=== PATIENT | female | born 1970 | race Caucasian/White ===

== ENCOUNTER 2017-02-23 23:35 | Emergency (ER) | payer MEDICAID ==
[~2017-02-23] VITALS: Ht 160 cm; Wt 59.0 kg
[2017-02-23 23:35] VITALS: BP 113/74
[2017-02-24] MEDS ORDERED: ACETAMINOPHEN ES 500 MG TABLET ONE (00:53)
[2017-02-24] MEDS ORDERED: ACETAMINOPHEN 325 MG TABLET PO ONE (01:00)
== END 2017-02-24 01:13 | disposition home or self-care (01) ==
LOC: ER 23:35
DX: S39.012A Strain of muscle, fascia and tendon of lower back, initial encounter (principal); V43.52XA Car driver injured in collision with other type car in traffic accident, initial encounter; Y93.89 Activity, other specified; Y92.89 Other specified places as the place of occurrence of the external cause; Y99.9 Unspecified external cause status
CPT/HCPCS: A4606; Z7502; Z7610

== ENCOUNTER 2017-04-07 21:51 | Emergency (ER) | payer MEDICAID, OTHER ==
[~2017-04-07] VITALS: Ht 157.5 cm; Wt 63.5 kg
[2017-04-07 21:57] VITALS: BP 114/73
[2017-04-07] MEDS ORDERED: ACETAMINOPHEN ES 500 MG TABLET ONE (23:25)
[2017-04-07] MEDS ORDERED: ACETAMINOPHEN 325 MG TABLET PO ONE (23:30)
== END 2017-04-07 23:39 | disposition home or self-care (01) ==
LOC: ER 21:56
DX: S39.012A Strain of muscle, fascia and tendon of lower back, initial encounter (principal); S29.012A Strain of muscle and tendon of back wall of thorax, initial encounter; V43.52XA Car driver injured in collision with other type car in traffic accident, initial encounter; Y93.89 Activity, other specified; Y92.413 State road as the place of occurrence of the external cause; Y99.8 Other external cause status
CPT/HCPCS: 99282; A4606; Z7610